=== PATIENT | male | born 1985 | race African-American/Black ===

== ENCOUNTER 2022-11-05 06:39 | Emergency (ER) | payer MEDICAID ==
[~2022-11-05] VITALS: Ht 175.3 cm; Wt 90.0 kg
[2022-11-05 07:56] VITALS: BP 130/89
[2022-11-05] MEDS ORDERED: INDO50CA82 PO (08:57)
[2022-11-05] MEDS ORDERED: COLC1CAP PO (08:57)
[2022-11-05] MEDS ORDERED: KETOROLAC TROMETH 60MG/2ML VIAL IM ONE (09:00)
[2022-11-05] MEDS ORDERED: methylPREDNISolone SOD SUCC 125 MG/2 ML VL IM ONE (09:00)
== END 2022-11-05 09:15 | disposition home or self-care (01) ==
LOC: ER 06:39
DX: M10.9 Gout, unspecified (principal)
CPT/HCPCS: 73630; 96372; 99284; J1885; J2930